=== PATIENT | female | born 1950 | race Caucasian/White ===

== ENCOUNTER 2016-11-28 11:22 | Emergency (ER) | payer OTHER ==
[~2016-11-28] VITALS: Ht 152.4 cm; Wt 89.5 kg
[~2016-11-28 11:22] MED LIST: ANTIVERT25 MG PO; ASPIR 8181 M1 PO; Aspirin E.C. PO; CARDURA8 MG PO; CENTRUM SILVER1 EAC3 PO; DESLORATADINE5 MG PO; FEOSOL325 MG PO; FEROSUL325 MG PO; FLEXERIL5 MG PO; GLUCOPHAGE XR750 MG PO; IBUPROFEN800 MG PO; IRON325 MG PO; NAPROSYN500 MG PO; NAPROXEN375 M1 PO; ONE DAILY TABL1 EAC1 PO; PROPRANOLOL HCL60 MG PO; SIMVASTATIN20 MG PO; TRAMADOL HCL50 MG PO; Ultram PO
[2016-11-28] MEDS ORDERED: PREDNISONE20 MG PO (13:03)
[2016-11-28] MEDS ORDERED: EPIPEN ADU0.3 MG/0.3 IM (13:03)
[2016-11-28] MEDS ORDERED: PEPCID40 MG PO (13:03)
[2016-11-28 15:12] VITALS: BP 127/58
== END 2016-11-28 16:29 | disposition home or self-care (01) ==
LOC: EME → EDBD 11:22 → EME 11:22
DX: T63.441A Toxic effect of venom of bees, accidental (unintentional), initial encounter (principal); R06.02 Shortness of breath; L29.8 Other pruritus; L50.9 Urticaria, unspecified; I10 Essential (primary) hypertension; Z79.82 Long term (current) use of aspirin
CPT/HCPCS: 99281; 99285; J1100; J1200; J7030; S0028

== ENCOUNTER 2017-07-07 16:51 | Emergency (ER) | payer OTHER ==
[~2017-07-07] VITALS: Ht 152.4 cm; Wt 90.9 kg
[~2017-07-07 16:51] MED LIST changes: +EPIPEN ADU0.3 MG/0.3 IM; +PEPCID40 MG PO; +PREDNISONE20 MG PO
[2017-07-07] MEDS ORDERED: KEFLEX500 MG PO (20:57)
[2017-07-07 21:30] VITALS: BP 183/83
== END 2017-07-07 21:34 | disposition home or self-care (01) ==
LOC: EME 16:51
DX: S01.121A Laceration with foreign body of right eyelid and periocular area, initial encounter (principal); W20.8XXA Other cause of strike by thrown, projected or falling object, initial encounter; Z23 Encounter for immunization; I10 Essential (primary) hypertension; R73.03 Prediabetes; Z96.653 Presence of artificial knee joint, bilateral
CPT/HCPCS: 70450; 99281; 99284